=== PATIENT | male | born 1930 | race Two or more races ===

== ENCOUNTER 2017-05-25 11:58 | Inpatient (IN) | payer MEDICARE, MEDICAID ==
[~2017-05-25] VITALS: Ht 172.7 cm; Wt 63.5 kg
[2017-05-25] MEDS ORDERED: BISACODYL5 MG ORAL (12:07)
[2017-05-25] MEDS ORDERED: AMBIEN5 MG ORAL (12:07)
[2017-05-25] MEDS ORDERED: METOPROLOL TAR100 M1 ORAL (12:07)
[2017-05-25] MEDS ORDERED: GUAIFENESI100 MG/5 M ORAL (12:07)
[2017-05-25] MEDS ORDERED: ACETAMINOPHEN120 M1 RC (12:07)
[2017-05-25] MEDS ORDERED: DOCUSATE SODIU100 MG ORAL (12:07)
[2017-05-25] MEDS ORDERED: BACITRACIN10 GM TOPIC (12:07)
[2017-05-25] MEDS ORDERED: LASIX80 MG ORAL (12:07)
[2017-05-25] MEDS ORDERED: LEVOTHYROXINE75 MCG ORAL (12:07)
[2017-05-25] MEDS ORDERED: LEVSIN0.125 MG ORAL (12:07)
[2017-05-25 12:10] VITALS: BP 112/64
[2017-05-25] MEDS ORDERED: PROTONIX20 MG ORAL (12:10)
[2017-05-25] MEDS ORDERED: NEPHRO-VITE RX1 EAC1 PO (12:10)
[2017-05-25] MEDS ORDERED: ZEMPLAR1 MC1 ORAL (12:10)
[2017-05-25] MEDS ORDERED: PRO-STAT LIQUID30 ML ORAL (12:10)
[2017-05-25] MEDS ORDERED: ZINC SULFATE220 M1 ORAL (12:10)
[2017-05-25] MEDS ORDERED: SUCRALFATE1 GM/10 ML PO (12:10)
[2017-05-25 12:29] LABS: BASOPHILS % (AUTO) 0.8 % (0.0-2.0); EOSINOPHILS % (AUTO) 4.4 % (0.0-3.0); HEMATOCRIT 25.8 % (42.0-52.0); HEMOGLOBIN 8.4 G/DL (14.2-18.0); LYMPHOCYTES % (AUTO) 12.8 % (20.0-45.0); MEAN CORPUSCULAR VOLUME 106 FL (80-99); MONOCYTES % (AUTO) 9.9 % (1.0-10.0); PLATELET COUNT 219 K/UL (150-450); RED BLOOD COUNT 2.44 M/UL (4.70-6.10); RED CELL DISTRIBUTION WIDTH 17.3 % (11.6-14.8); WHITE BLOOD COUNT 6.5 K/UL (4.8-10.8)
[2017-05-25 12:39] LABS: ANION GAP 3 mmol/L (5-15); BLOOD UREA NITROGEN 74 mg/dL (7-18); CALCIUM 8.9 MG/DL (8.5-10.1); CARBON DIOXIDE 37 MMOL/L (21-32); CHLORIDE 98 MMOL/L (98-107); CREATININE 1.6 MG/DL (0.55-1.30); POTASSIUM 3.8 MMOL/L (3.5-5.1); SODIUM 138 MMOL/L (136-145)
[2017-05-25 12:41] LABS: INR 1.2 (0.9-1.1)
[2017-05-25 12:54] LABS: ALANINE AMINOTRANSFERASE 21 U/L (12-78); ALBUMIN 2.2 G/DL (3.4-5.0); ALBUMIN/GLOBULIN RATIO 0.4 (1.0-2.7); ALKALINE PHOSPHATASE 128 U/L (46-116); ASPARTATE AMINO TRANSFERASE 26 U/L (15-37); BILIRUBIN,TOTAL 0.3 MG/DL (0.2-1.0); CREATINE KINASE 62 U/L (26-308)
--- NOTE | 2017-05-25 13:20 | Diagnostic Imaging Report ---
Indication: Pain, cough Technique: One view of the chest Comparison: none Findings: The heart is enlarged. There are bilateral moderate sized pleural effusions. There is bilateral interstitial edema, mild. There are median sternotomy sutures. Impression: Moderate size bilateral pleural effusions Mild interstitial congestion Cardiomegaly
[2017-05-25 13:43] LABS: APPEARANCE,URINE CLEAR; BILIRUBIN, URINE NEGATIVE (NEGATIVE); COLOR,URINE PALE YELLOW; GLUCOSE, URINE (UA) NEGATIVE (NEGATIVE); KETONES,URINE NEGATIVE (NEGATIVE); LEUKOCYTE ESTERASE ,URINE NEGATIVE (NEGATIVE); NITRITE,URINE NEGATIVE (NEGATIVE); PH,URINE 7 (4.5-8.0); PROTEIN,URINE 1+ (NEGATIVE); UROBILINOGEN,URINE NORMAL MG/DL (0.0-1.0)
--- NOTE | 2017-05-25 14:02 | Emergency Room Report ---
History of Present Illness General Chief Complaint: Abnormal Labs Source: Patient Present Illness HPI 87-year-old male, DNR/DNI, history of anemia requiring blood transfusions, presents with low H&H. His hemoglobin was reportedly 7.2 in the half-way. Patient is awake and alert but unable to provide a full history. His son states that patient has had anemia in the past, unknown if she is ever had a colonoscopy or endoscopy. Patient is denying any nausea vomiting, no black or bloody stools. not on blod thinners Patient History Past Medical History: see triage record Past Surgical History: none Pertinent Family History: none Reviewed Nursing Documentation: PMH: Agreed, PSxH: Agreed Nursing Documentation-PMH Hx Cardiac Problems: Yes - acute post hemorrhagic anemia, AFIB, heart failure, atherosclerotic heart Hx Hypertension: Yes - non-pressure chronic ulcer (lower leg) Hx Cancer: Yes - Lung cancer, bone cancer Review of Systems All Other Systems: negative except mentioned in HPI Physical Exam Vital Signs Date Time Temp Pulse Resp B/P (MAP) Pulse Ox O2 Delivery O2 Flow Rate FiO2 05/25/17 11:46 97.4 116 18 115/62 97 Nasal Cannula 2.0 97.3 Sp02 EP Interpretation: reviewed, normal General Appearance: mild distress, thin, Chronically Ill Head: normocephalic, atraumatic Eyes: bilateral eye normal inspection, bilateral eye PERRL, bilateral eye EOMI ENT: normal ENT inspection, normal pharynx, normal voice, moist mucus membranes Neck: normal inspection, full range of motion, supple Respiratory: normal inspection, lungs clear, normal breath sounds, no respiratory distress, no retraction, no wheezing, speaking full sentences, chest symmetrical Cardiovascular #1: normal inspection, regular rate, rhythm, no edema, normal capillary refill Cardiovascular #2: 2+ radial (R), 2+ radial (L) Gastrointestinal: normal inspection, non tender, soft, non-distended, no guarding Musculoskeletal: normal inspection, back normal, normal range of motion, non- tender Neurologic: alert, responsive, motor strength/tone normal, sensory intact, speech normal Psychiatric: other - dementia Skin: normal inspection, normal color, no rash, warm/dry, well hydrated, normal turgor Medical Decision Making Diagnostic Impression: Primary Impression: Anemia Additional Impression: Atrial fibrillation with rapid ventricular response ER Course 87-year-old male, history of severe anemia, presenting with low H&H DDX: Severe anemia, gives no history of GI bleed Plan: Obtain labs, ua, EKG, CXR Type and screen ER course: Patient has been monitored, has paroxysmal atrial fibrillation, with RVR, was 120s now 100 hgb 8 will xfuse 1 unit in ed Disposition: Patient is to be admitted to tele D/W hospitalist Dr Spencer Please note that this Emergency Department Report was dictated using [employer] applications manager technology software, occasionally this can lead to erroneous entry secondary to interpretation by the dictation equipment. EKG Diagnostic Results EP Interpretation: Yes Rate: tachy Rhythm: afib ST Segments: twi V5 ASA given to patient: No Rhythm Strip EP Interpretation: Yes Rate: 110 Rhythm: afib Chest X-ray CXR: Ordered: Yes 1 view Indication: pain EP interpretation: Yes Interpretation: bl pleural effusion Impression: bl pleural effusions Electronically signed by Chayito Flores MD Laboratory Tests Test 05/25/17 12:16 05/25/17 13:06 White Blood Count 6.5 K/UL (4.8-10.8) Red Blood Count 2.44 M/UL (4.70-6.10) L Hemoglobin 8.4 G/DL (14.2-18.0) L Hematocrit 25.8 % (42.0-52.0) L Mean Corpuscular Volume 106 FL (80-99) H Mean Corpuscular Hemoglobin 34.5 PG (27.0-31.0) H Mean Corpuscular Hemoglobin Concent 32.6 G/DL (32.0-36.0) Red Cell Distribution Width 17.3 % (11.6-14.8) H Platelet Count 219 K/UL (150-450) Mean Platelet Volume 6.9 FL (6.5-10.1) Neutrophils (%) (Auto) 72.0 % (45.0-75.0) Lymphocytes (%) (Auto) 12.8 % (20.0-45.0) L Monocytes (%) (Auto) 9.9 % (1.0-10.0) Eosinophils (%) (Auto) 4.4 % (0.0-3.0) H Basophils (%) (Auto) 0.8 % (0.0-2.0) Prothrombin Time 12.8 SEC (9.30-11.50) H Prothrombin Time INR 1.2 (0.9-1.1) H PTT 29 SEC (23-33) Sodium Level 138 MMOL/L (136-145) Potassium Level 3.8 MMOL/L (3.5-5.1) Chloride Level 98 MMOL/L (98-107) Carbon Dioxide Level 37 MMOL/L (21-32) H Anion Gap 3 mmol/L (5-15) L Blood Urea Nitrogen 74 mg/dL (7-18) H Creatinine 1.6 MG/DL (0.55-1.30) H Estimate Glomerular Filtration Rate mL/min (>60) Glucose Level 145 MG/DL (74-106) H Calcium Level 8.9 MG/DL (8.5-10.1) Total Bilirubin 0.3 MG/DL (0.2-1.0) Aspartate Amino Transferase (AST) 26 U/L (15-37) Alanine Aminotransferase (ALT) 21 U/L (12-78) Alkaline Phosphatase 128 U/L (46-116) H Total Creatine Kinase 62 U/L (26-308) Creatine Kinase MB 3.0 NG/ML (0.0-3.6) Creatine Kinase MB Relative Index 4.8 Troponin I 0.032 ng/mL (0.000-0.056) Pro-B-Type Natriuretic Peptide 56855 pg/mL (0-125) H Total Protein 7.5 G/DL (6.4-8.2) Albumin 2.2 G/DL (3.4-5.0) L Globulin 5.3 g/dL Albumin/Globulin Ratio 0.4 (1.0-2.7) L Urine Color Pale yellow Urine Appearance Clear Urine pH 7 (4.5-8.0) Urine Specific [place] 1.005 (1.005-1.035) Urine Protein 1+ (NEGATIVE) H Urine Glucose (UA) Negative (NEGATIVE) Urine Ketones Negative (NEGATIVE) Urine Occult Blood Negative (NEGATIVE) Urine Nitrite Negative (NEGATIVE) Urine Bilirubin Negative (NEGATIVE) Urine Urobilinogen Normal MG/DL (0.0-1.0) Urine Leukocyte Esterase Negative (NEGATIVE) Urine RBC Pending Urine WBC Pending Urine Squamous Epithelial Cells Pending Urine Bacteria Pending Last Vital Signs Date Time Temp Pulse Resp B/P (MAP) Pulse Ox O2 Delivery O2 Flow Rate FiO2 05/25/17 12:10 97.3 123 18 112/64 100 Nasal Cannula 2.0 97.3 Disposition: ADMITTED INPATIENT Condition: Serious Referrals: CELSA SPENCER (PCP) Chayito Flores M.D. May 25, 2017 14:02
[2017-05-25] MEDS ORDERED: Bisacodyl EC 5mg tab ORAL PRN (16:45)
[2017-05-25] MEDS ORDERED: Zolpidem 5mg tab ORAL PRN (16:45)
--- NOTE | 2017-05-25 16:56 | History & Physical ---
History and Physical History & Physicial seen and examined. Dict # [id number] 1- Acute/ chronic Anmeia 2- RF 3- Afib 4- DNR 4- See Full Dictation Plan: Cardiology- Dr Rutledge Nephrology- Dr Harding consulted. Denis Vázquez MD May 25, 2017 16:56
[2017-05-25] MEDS: Docusate 100mg cap ORAL SCH (17:55)
[2017-05-25 18:29] LABS: BASOPHILS % (AUTO) 0.6 % (0.0-2.0); HEMATOCRIT 25.9 % (42.0-52.0); HEMOGLOBIN 8.5 G/DL (14.2-18.0); LYMPHOCYTES % (AUTO) 13.6 % (20.0-45.0); MEAN CORPUSCULAR VOLUME 105 FL (80-99); MONOCYTES % (AUTO) 10.9 % (1.0-10.0); NEUTROPHILS % (AUTO) 69.9 % (45.0-75.0); PLATELET COUNT 240 K/UL (150-450); RED BLOOD COUNT 2.47 M/UL (4.70-6.10); RED CELL DISTRIBUTION WIDTH 17.5 % (11.6-14.8); WHITE BLOOD COUNT 6.6 K/UL (4.8-10.8)
[2017-05-25 20:00] VITALS: BP 111/63
[2017-05-26] VITALS: BP 109/56
--- NOTE | 2017-05-26 03:17 | History and Physical Report ---
DATE OF ADMISSION: 05/25/2017 SOURCE OF INFORMATION: The patient and EMR. HISTORY OF PRESENT ILLNESS: This patient is an 87-year-old male, who has been transferred from the halfway facility regarding the abnormal serum hemoglobin level of 7.5 in the facility. The patient is Do Not Resuscitate/Do Not Intubate with history of multiple blood transfusions in the past. At the time of evaluation, the patient denies any chest pain or shortness of breath. No abnormal gross bleeding is reported. The repeated serum hemoglobin in the ER is 8.4. PAST MEDICAL HISTORY: Positive for atrial fibrillation, heart failure, atherosclerotic disease, hypertension, and history of lung and bone cancer. MEDICATIONS: Current hospital medications including but not limited to, Levaquin, Lasix, levothyroxine, metoprolol, and sucralfate. ALLERGIES: NKDA. SOCIAL HISTORY: The patient is a resident of a halfway facility. Do Not Resuscitate/Do Not Intubate. No history of illicit drug abuse or active alcohol abuse is reported. FAMILY HISTORY: Reviewed, noncontributory. PHYSICAL EXAMINATION: VITAL SIGNS: Blood pressure 115/80, temperature 97.4 degrees, and pulse oximetry 98% on room air. HEAD AND NECK: Atraumatic and normocephalic. CHEST: Clear. No wheezing. No crackles. ABDOMEN: Soft. No severe tenderness. No organomegaly. No guarding. MUSCULOSKELETAL: No gross lateralized motor deficit. Positive for deconditioning. NEUROLOGIC: The patient is awake, alert. Lack of attention. PSYCHIATRIC: Mood and affect is congruent with dementia. LABORATORY AND DIAGNOSTIC DATA: Labs dated 05/25/2017 shows WBC 6.5, hemoglobin of 8.4, platelets of 219, and MCV of 106. Sodium 138, potassium 3.8, BUN 74, creatinine 1.6, and glucose of 145. BNP of 23,000. Chest x-ray dated 05/25/2017 is obtained and official report is pending. ASSESSMENT AND PLAN: 1. Acute anemia, source unknown. 2. History of lung cancer. 3. Renal failure, age indeterminate. 4. Atrial fibrillation, rate uncontrolled. 5. Gastrointestinal and deep vein thrombosis prophylaxes. 6. Dementia. 7. Hypothyroidism. PLAN OF CARE: We will resume alf medications. We will check the hemoglobin and hematocrit Q 8hr. We will consult Cardiology and Nephrology. I agree with the admission to the telemetry unit. We will obtain a 2D echo. Denis Vázquez M.D. DR: RAYMUNDO JOB#: [id number] CC: CARISA
[2017-05-26 04:00] VITALS: BP 122/62
[2017-05-26] MEDS: Docusate 100mg cap ORAL SCH (08:32)
[2017-05-26 08:33] VITALS: BP 122/62
[2017-05-26 08:37] LABS: BASOPHILS % (AUTO) 0.8 % (0.0-2.0); EOSINOPHILS % (AUTO) 4.3 % (0.0-3.0); HEMATOCRIT 27.8 % (42.0-52.0); HEMOGLOBIN 9.2 G/DL (14.2-18.0); LYMPHOCYTES % (AUTO) 15.2 % (20.0-45.0); MEAN CORPUSCULAR VOLUME 106 FL (80-99); MONOCYTES % (AUTO) 8.5 % (1.0-10.0); NEUTROPHILS % (AUTO) 71.3 % (45.0-75.0); PLATELET COUNT 262 K/UL (150-450); RED BLOOD COUNT 2.62 M/UL (4.70-6.10); RED CELL DISTRIBUTION WIDTH 17.6 % (11.6-14.8); WHITE BLOOD COUNT 6.6 K/UL (4.8-10.8)
[2017-05-26] MEDS ORDERED: Zinc Sulfate 220mg cap ORAL SCH (09:00)
[2017-05-26] MEDS ORDERED: Furosemide 40mg tab ORAL SCH (09:00)
[2017-05-26 09:21] LABS: ALANINE AMINOTRANSFERASE 20 U/L (12-78); ALBUMIN 2.4 G/DL (3.4-5.0); ALBUMIN/GLOBULIN RATIO 0.4 (1.0-2.7); ALKALINE PHOSPHATASE 114 U/L (46-116); ANION GAP 2 mmol/L (5-15); ASPARTATE AMINO TRANSFERASE 24 U/L (15-37); BILIRUBIN,TOTAL 0.5 MG/DL (0.2-1.0); BLOOD UREA NITROGEN 71 mg/dL (7-18); CALCIUM 9.3 MG/DL (8.5-10.1); CARBON DIOXIDE 37 MMOL/L (21-32); CHLORIDE 98 MMOL/L (98-107); CREATININE 1.6 MG/DL (0.55-1.30); POTASSIUM 3.7 MMOL/L (3.5-5.1); SODIUM 136 MMOL/L (136-145)
--- NOTE | 2017-05-26 13:40 | Pulmonology Progress Note ---
Assessment/Plan Problems: (1) Severe anemia (2) ATN (acute tubular necrosis) (3) Lung cancer Assessment/Plan pt's hemoglobin stays above 8, Blood bank wouldn't release any blood. pts family insisting on transferring back to hospital today without pt getting iv fluid Subjective ROS Limited/Unobtainable: No Constitutional: Reports: no symptoms HEENT: Repors: no symptoms Respiratory: Reports: no symptoms Cardiovascular: Reports: no symptoms Allergies: Coded Allergies: NO KNOWN DRUG ALLERGIES (Verified Allergy, Unknown, 05/25/17) Objective Last 24 Hour Vital Signs Date Time Temp Pulse Resp B/P (MAP) Pulse Ox O2 Delivery O2 Flow Rate FiO2 05/26/17 08:33 78 122/62 05/26/17 04:00 78 05/26/17 04:00 97.4 89 20 122/62 96 Nasal Cannula 2.0 97.4 05/26/17 00:00 79 05/26/17 00:00 98.2 76 18 109/56 96 Nasal Cannula 2.0 98.2 05/25/17 21:14 95 117/43 05/25/17 20:00 88 05/25/17 20:00 97.2 87 19 111/63 97 Nasal Cannula 2.0 97.2 05/25/17 16:00 81 05/25/17 14:49 97.3 123 18 112/64 100 Nasal Cannula 2.0 97.3 Intake and Output 05/25/17 05/26/17 19:00 07:00 Output Total 700 ml Balance -700 ml Output Urine Total 700 ml # Voids 1 1 # Bowel Movements 1 Objective comfortable General Appearance: cachetic HEENT: normocephalic Respiratory/Chest: chest wall non-tender, lungs clear Cardiovascular: normal peripheral pulses, normal rate Abdomen: normal bowel sounds, soft, non tender Genitourinary: normal external genitalia Extremities: no clubbing 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, no motor/sensory deficits Lymphatic: no neck adenopathy Laboratory Tests 05/25/17 17:45: White Blood Count 6.6, Red Blood Count 2.47L, Hemoglobin 8.5L, Hematocrit 25.9L , Mean Corpuscular Volume 105H, Mean Corpuscular Hemoglobin 34.4H, Mean Corpuscular Hemoglobin Concent 32.8, Red Cell Distribution Width 17.5H, Platelet Count 240, Mean Platelet Volume 6.7, Neutrophils (%) (Auto) 69.9, Lymphocytes (%) (Auto) 13.6L, Monocytes (%) (Auto) 10.9H, Eosinophils (%) (Auto ) 5.0H, Basophils (%) (Auto) 0.6, Troponin I 0.033 05/26/17 07:55: White Blood Count 6.6, Red Blood Count 2.62L, Hemoglobin 9.2L, Hematocrit 27.8L , Mean Corpuscular Volume 106H, Mean Corpuscular Hemoglobin 35.1H, Mean Corpuscular Hemoglobin Concent 33.1, Red Cell Distribution Width 17.6H, Platelet Count 262, Mean Platelet Volume 7.2, Neutrophils (%) (Auto) 71.3, Lymphocytes (%) (Auto) 15.2L, Monocytes (%) (Auto) 8.5, Eosinophils (%) (Auto) 4.3H, Basophils (%) (Auto) 0.8, Sodium Level 136, Potassium Level 3.7, Chloride Level 98, Carbon Dioxide Level 37H, Anion Gap 2L, Blood Urea Nitrogen 71H, Creatinine 1.6H, Estimat Glomerular Filtration Rate , Glucose Level 116H, Calcium Level 9.3, Total Bilirubin 0.5, Aspartate Amino Transf (AST/SGOT) 24, Alanine Aminotransferase (ALT/SGPT) 20, Alkaline Phosphatase 114, Total Protein 8.1, Albumin 2.4L, Globulin 5.7, Albumin/Globulin Ratio 0.4L, Thyroid Stimulating Hormone (TSH) 27.214H CELSA MASON May 26, 2017 13:40
--- NOTE | 2017-05-27 07:13 | Discharge Summary ---
Discharge Summary Hospital Course Date of Admission May 25, 2017 at 13:07 Date of Discharge May 26, 2017 at 11:55 Admitting Diagnosis SEVER ANEMIA HPI Mayank Morales is a 87 year old male who was admitted on May 25, 2017 at 13:07 for Severe Anemia Hospital Course [id number] Discharge Discharge Disposition Patient was discharged to SNF/Subacute Facility(03) Discharge Diagnoses: Lily Benz NP May 27, 2017 07:13
--- NOTE | 2017-05-27 23:45 | Discharge Summary 2 SIG ---
DATE OF ADMISSION: 05/25/2017 DATE OF DISCHARGE: 05/26/2017 BRIEF HOSPITAL COURSE: The patient is an 87-year-old male, who [facility] to abnormal hemoglobin level of 7.5 in the facility. The patient is DNR and DNI and had history of multiple blood transfusions in the past, history of atrial fibrillation, heart failure, atherosclerotic disease, hypertension, lung and bone CA, and hypothyroidism. On evaluation at ED, hemoglobin was 8.4, hematocrit was 25, creatinine was 1.6 with BUN 74. Chest x-ray done showed mild interstitial congestion with moderate-sized bilateral pleural effusions. EKG was in atrial fibrillation. He was admitted for evaluation of acute anemia and renal failure. skilled nursing medications were resumed. Venous duplex of lower extremity was negative for DVT. He was ordered blood transfusion prn hemoglobin less than 8. However, his hemoglobin levels were stable greater than 8, he did not require any blood transfusion. Following day, there was rapid improvement in patient's symptoms. Hemoglobin was 9.2, hematocrit was 27.8. There was no active bleeding noted. He was eventually discharged back to detention. FINAL DIAGNOSES: 1. Anemia. 2. Renal failure, age indeterminate. 3. Atrial fibrillation, rate controlled. 4. Lung CA. 5. Hypothyroidism. 6. Dementia. DISPOSITION: The patient was discharged to rehabilitation center on . DISCHARGE MEDICATIONS: Refer to medication list. Willi Spencer M.D. I have been assigned to dictate discharge summary on this account and I was not involved in the patient's management. Lily Benz N.P. DR: JOLEEN JOB#: [id number] CC: CARISA
--- NOTE | 2017-05-31 10:55 | Diagnostic Imaging Report ---
APPROVED REPORT CPT Code: 58671 Present Symptoms Comments: PAIN BILATERAL: Imaging reveals a patent deep venous system bilaterally. There is no evidence of thrombus within the femoral, popliteal, right tibial segments. The greater saphenous veins are also within normal limits. Doppler indicates normal spontaneous flow within these segments. The left calf veins were not well imaged, due to bandages.
== END 2017-05-26 11:55 | DRG 811 ==
LOC: EDBD 11:58 → EMR 12:15 → EDBEDREQ 12:25 → 2E 13:07 → EDBEDREQ 14:14
DX: D64.9 Anemia, unspecified (principal); N17.0 Acute kidney failure with tubular necrosis; I48.91 Unspecified atrial fibrillation; I50.9 Heart failure, unspecified; I11.0 Hypertensive heart disease with heart failure; F03.90 Unspecified dementia, unspecified severity, without behavioral disturbance, psychotic disturbance, mood disturbance, and anxiety; E03.9 Hypothyroidism, unspecified; Z66 Do not resuscitate; Z85.830 Personal history of malignant neoplasm of bone; Z85.118 Personal history of other malignant neoplasm of bronchus and lung
CPT/HCPCS: 36415; 71045; 80053; 81003; 82550; 82553; 83880; 84443; 84484; 85025; 85610; 85730; 86850; 86900; 86901; 86920; 87081; 93005; 93970; 99285